=== PATIENT | female | born 1955 | race Caucasian/White ===

== ENCOUNTER → 2024-05-28 | Outpatient (CLI) | payer MEDICARE ==
--- NOTE | 2024-05-28 22:16 | HMCIMG ---
CHEST 2VWS CLINICAL HISTORY: Essential (primary) hypertension COMPARISON: None TECHNIQUE: Two views of the chest were obtained. FINDINGS: Lungs are clear. The cardiac size and mediastinum are unremarkable. The bony structures are within normal limits. IMPRESSION: No acute cardiopulmonary process identified.
== END | disposition home or self-care (01) ==
LOC: RAH 16:51
PROVIDERS: ATTEND Internal Medicine Nephrology
DX: I10 Essential (primary) hypertension (principal)
CPT/HCPCS: 71046

== ENCOUNTER → 2024-05-29 | Outpatient (CLI) | payer MEDICARE ==
--- NOTE | 2024-05-29 09:05 | EKG ---
[facility] Test Date: 2024-05-29 Test Time: 09:47:26 Pat Name: MARY ESTEVES Department: LAB Patient ID: [facility] [id number] Room: Gender: F Hyperbar[employer] Tech: [id number] : 1955 Requested By: LUIS ANTONIO LEO Order Number: [id number] Reading MD: Luis Beltran Measurements Intervals [place] Rate: 75 P: 35 GA: 147 QRS: -18 QRSD: 98 T: 21 QT: 409 QTc: 458 Interpretive Statements Sinus rhythm No previous ECG available for comparison Electronically Signed On 05-29-2024 15:46:34 W[employer] ROOM WORK[employer] by Luis Beltran Please click the below link to view image of tracing.
== END | disposition home or self-care (01) ==
LOC: LAB 08:42
PROVIDERS: ATTEND Internal Medicine Nephrology
DX: I10 Essential (primary) hypertension (principal)
CPT/HCPCS: 93005